=== PATIENT | female | born 1950 | race Caucasian/White ===

== ENCOUNTER 2020-02-19 14:53 | Inpatient (IN) | payer MEDICARE, OTHER ==
[2020-02-19 16:09] LABS: FLU B NEGATIVE B (NEGATIVE B)
[2020-02-19 16:31] LABS: BASOPHIL 0.7 % (0-2); EOSINOPHIL 1.4 % (0-7); HGB 14.3 g/dl (12.5-16.0); LYMPHOCYTE 10.5 % (15-48); MCH 28.4 pg (25.0-31.0); MCHC 31.1 g/dL (32.0-36.0); MCV 91.3 fL (78.0-100.0); MPV 10.4 fL (6.0-9.5); NEUTROPHIL 80.9 % (41-80); NRBC 0; PLT 329 K/uL (150-400); RBC 5.04 M/uL (4.20-5.40); RDW 15.7 % (11.5-14.0); WBC 14.5 K/uL (4.0-10.5)
[2020-02-19 16:49] LABS: ALBUMIN 2.8 g/dL (3.4-5.0); BILIRUBIN - TOTAL 0.8 mg/dL (0.2-1.0); BUN/CREAT RATIO (CALC) 17.4 RATIO; CREATININE 1.15 mg/dL (0.51-0.95); POTASSIUM 3.6 mmol/L (3.5-5.1); TOTAL PROTEIN 8.8 g/dL (6.4-8.2)
[2020-02-19 16:55] LABS: LACTIC ACID 1.1 mmol/L (0.4-1.9)
[2020-02-19 17:59] LABS: BILIRUBIN NEGATIVE (NEGATIVE); BLOOD 3+ Ery/uL (NEGATIVE); COLOR YELLOW (YELLOW); GLUCOSE (U) NORMAL (NORMAL); LEUKOCYTES 2+ Leu/uL (NEGATIVE); NITRITE POSITIVE (NEGATIVE); PROTEIN 2+ mg/dL (NEGATIVE); SPECIFIC GRAVITY 1.015 (1.001-1.030); UROBILINOGEN 0.2 mg/dL (0.2-1.0)
[2020-02-19 18:03] LABS: CLARITY SLIGHTLY HAZY (CLEAR)
[2020-02-19 18:07] LABS: BACTERIA 2+; URINARY WBC 20-50
[2020-02-19] MEDS ORDERED: TOPROL XL100 MG PO (20:57)
[2020-02-19] MEDS ORDERED: DITROPAN XL *OUT5 MG PO (21:01)
[2020-02-19] MEDS ORDERED: CARDURA2 MG PO (21:03)
[2020-02-19] MEDS ORDERED: CRESTOR20 MG PO (21:04)
[2020-02-19] MEDS ORDERED: K-DUR20 MEQ PO (21:05)
[2020-02-19] MEDS ORDERED: CYMBALTA20 MG PO (21:07)
[2020-02-19] MEDS ORDERED: NORVASC2.5 MG PO (21:08)
[2020-02-20 04:49] LABS: BASOPHIL 0.6 % (0-2); EOSINOPHIL 0.5 % (0-7); HCT 44.5 % (37.0-47.0); LYMPHOCYTE 7.1 % (15-48); MCH 28.9 pg (25.0-31.0); MCHC 31.5 g/dL (32.0-36.0); MCV 91.8 fL (78.0-100.0); MONOCYTE 5.7 % (0-12); MPV 10.3 fL (6.0-9.5); NEUTROPHIL 83.9 % (41-80); NRBC 0; PLT 320 K/uL (150-400); RBC 4.85 M/uL (4.20-5.40); RDW 15.9 % (11.5-14.0); WBC 18.3 K/uL (4.0-10.5)
[2020-02-20 05:10] LABS: BUN/CREAT RATIO (CALC) 19.1 RATIO; CREATININE 0.89 mg/dL (0.51-0.95); POTASSIUM 3.8 mmol/L (3.5-5.1)
[2020-02-21 05:52] LABS: BASOPHIL 0.8 % (0-2); EOSINOPHIL 0.2 % (0-7); HCT 47.7 % (37.0-47.0); HGB 14.5 g/dl (12.5-16.0); LYMPHOCYTE 7.6 % (15-48); MCH 28.4 pg (25.0-31.0); MCHC 30.4 g/dL (32.0-36.0); MCV 93.5 fL (78.0-100.0); MONOCYTE 8.7 % (0-12); MPV 10.1 fL (6.0-9.5); NEUTROPHIL 80.4 % (41-80); PLT 307 K/uL (150-400)
[2020-02-21 06:10] LABS: BUN/CREAT RATIO (CALC) 18.6 RATIO; CREATININE 0.86 mg/dL (0.51-0.95); POTASSIUM 3.1 mmol/L (3.5-5.1)
[2020-02-21 07:10] LABS: BAND 6 % (0-10); LYMPHOCYTE(M) 2 % (15-48); MONOCYTE(M) 7 % (0-12); NEUTROPHILS(M) 85 % (41-80); TOTAL CELL COUNT 100
[2020-02-21 07:11] LABS: PLATELET ESTIMATE NORMAL; PLATELET MORPHOLOGY NORMAL
--- NOTE | 2020-02-21 13:53 | NUR ---
WAS MADE AWARE THAT PATIENT'S TEMP WAS 103.0, TALKED WITH DOCTOR. GAVE PATIENT 650 TYLENOL SUPP. RECHECKED TEMP AT 1100 AND PATIENT TEMP HAD INCREASED. MD ORDERED COOLING BLANKET. PLACE ICE PACKS UNDER ARMS AND GROIN AREA AND PLACED COOLING BLANET ON PATIENT AT 1126. RECHECK TEMP AT 1245 WAS GOING DOWN TO 101.4. RECHECKED AGAIN AT 1345 AND WAS 97.6. COOLING BLANKET WAS REMOVED AND PATIENT'S SKIN WAS CHECK WAS PINK/INTACT AND COOL TO TOUCH.
[2020-02-22 05:51] LABS: BASOPHIL 0.7 % (0-2); EOSINOPHIL 0.9 % (0-7); HCT 39.5 % (37.0-47.0); HGB 12.5 g/dl (12.5-16.0); LYMPHOCYTE 6.9 % (15-48); MCH 28.7 pg (25.0-31.0); MCHC 31.6 g/dL (32.0-36.0); MCV 90.8 fL (78.0-100.0); MONOCYTE 5.3 % (0-12); MPV 10.4 fL (6.0-9.5); NEUTROPHIL 82.4 % (41-80); NRBC 0; PLT 268 K/uL (150-400); RBC 4.35 M/uL (4.20-5.40); RDW 15.7 % (11.5-14.0); WBC 15.9 K/uL (4.0-10.5)
[2020-02-22 06:07] LABS: BUN/CREAT RATIO (CALC) 18.8 RATIO; CREATININE 0.8 mg/dL (0.51-0.95); POTASSIUM 2.6 mmol/L (3.5-5.1)
--- NOTE | 2020-02-22 08:30 | NUR ---
PATIENT'S HEART RATE ON MONITOR IS STATING 117-135, CHECK PATIENT, SHE IS LAYING IN BED BP 126/64 TEMP 99.5. WENT AND TALKED WITH MD ABOUT PATIENT. HE STATED TO BOLUS THE NS THAT SHE HAD RUNNING AT 500/500 THEN START THE NS WITH K+ THAT HE ORDERED AFTER, HE FELT THAT PATIENT WAS BECOMING SEPTIC. AND FOR ME TO WATCH PATIENT, IF SHE GOT INTO THE 150'S LET HIM KNOW.
--- NOTE | 2020-02-22 09:13 | NUR ---
PATIENT BOLUS ENED, STARTED NS 20K AND PATIENT'S HEART RATE IS 124
[2020-02-23 05:50] LABS: HGB 12.4 g/dl (12.5-16.0); MCH 28.6 pg (25.0-31.0); MCHC 31.8 g/dL (32.0-36.0); MCV 89.9 fL (78.0-100.0); MPV 10.1 fL (6.0-9.5); RBC 4.34 M/uL (4.20-5.40); RDW 15.9 % (11.5-14.0)
[2020-02-23 05:52] LABS: WBC 17.4 K/uL (4.0-10.5)
[2020-02-23 06:10] LABS: BUN/CREAT RATIO (CALC) 17.1 RATIO; CREATININE 0.76 mg/dL (0.51-0.95); POTASSIUM 3.7 mmol/L (3.5-5.1)
--- NOTE | 2020-02-23 17:07 | NUR ---
02/23/2020 Patient is current with [facility].
[2020-02-24 07:16] LABS: BASOPHIL 0.5 % (0-2); EOSINOPHIL 1.7 % (0-7); HCT 37.8 % (37.0-47.0); HGB 12.1 g/dl (12.5-16.0); LYMPHOCYTE 6.6 % (15-48); MCH 28.9 pg (25.0-31.0); MCV 90.4 fL (78.0-100.0); MONOCYTE 6.1 % (0-12); MPV 10.4 fL (6.0-9.5); NEUTROPHIL 81.3 % (41-80); NRBC 0; PLT 274 K/uL (150-400); RBC 4.18 M/uL (4.20-5.40); WBC 16.9 K/uL (4.0-10.5)
[2020-02-24] MEDS ORDERED: CALTRATE 600 +1 EAC1 PO (12:14)
[2020-02-24] MEDS ORDERED: LEVOTHYROXINE88 MC1 PO (12:18)
[2020-02-24] MEDS ORDERED: BACLOFEN 20MG T20 MG PO (12:20)
[2020-02-24] MEDS ORDERED: PRAVACHOL20 M1 PO (12:20)
[2020-02-24] MEDS ORDERED: TOPROL XL 25MG25 MG PO (12:21)
[2020-02-24] MEDS ORDERED: MIRAPEX0.25 MG PO (12:21)
[2020-02-25 06:23] LABS: BASOPHIL 0.5 % (0-2); EOSINOPHIL 3.6 % (0-7); HCT 37.3 % (37.0-47.0); HGB 11.7 g/dl (12.5-16.0); LYMPHOCYTE 6.5 % (15-48); MCH 28.7 pg (25.0-31.0); MCHC 31.4 g/dL (32.0-36.0); MCV 91.6 fL (78.0-100.0); MONOCYTE 5.5 % (0-12); MPV 10.6 fL (6.0-9.5); NEUTROPHIL 81.6 % (41-80); NRBC 0; PLT 266 K/uL (150-400); RBC 4.07 M/uL (4.20-5.40); RDW 15.9 % (11.5-14.0); WBC 14.8 K/uL (4.0-10.5)
[2020-02-25 06:43] LABS: BUN/CREAT RATIO (CALC) 13.5 RATIO; CREATININE 0.74 mg/dL (0.51-0.95)
[2020-02-26 05:57] LABS: BASOPHIL 0.4 % (0-2); EOSINOPHIL 3.2 % (0-7); HCT 38.3 % (37.0-47.0); HGB 11.9 g/dl (12.5-16.0); LYMPHOCYTE 6.6 % (15-48); MCH 28.5 pg (25.0-31.0); MCHC 31.1 g/dL (32.0-36.0); MCV 91.8 fL (78.0-100.0); MONOCYTE 6.1 % (0-12); MPV 10.2 fL (6.0-9.5); NEUTROPHIL 82.4 % (41-80); NRBC 0; PLT 295 K/uL (150-400); RBC 4.17 M/uL (4.20-5.40)
[2020-02-26 06:23] LABS: BUN/CREAT RATIO (CALC) 12.3 RATIO; CREATININE 0.73 mg/dL (0.51-0.95); POTASSIUM 3.7 mmol/L (3.5-5.1)
--- NOTE | 2020-02-26 13:29 | NUR ---
HAS NOT DETERMINED WHICH IV ABX ARE NEEDED FOR DISCHARGE AT THIS TIME. WANTING TO SPEAK TO PT UROLOGIST; DR. MARTINEZ WITH [facility] [phone] I DID CALL AND REQUEST A CALL BY HIM TO DR. ROYAL. SPOKE TO DJ AT UROLOGY OFFICE HE WILL REQUEST A CONSULT OVER THE PHONE. IN SPEAKING TO DR. ROYAL PT NOT MEDICALLY STABLE AT THIS TIME. SHE IS NEEDING A PICC LINE, AND PENDING TO SEE WHAT UROLOGY SAYS( POSSIABLE TRANSFER). WBC STILL CONCERNING TO DR. ROYAL. NO D/C DATE AT THIS TIME
--- NOTE | 2020-02-26 15:48 | NUR ---
02/26/20 1500 ORDER RECEIVED FOR MIDLINE INSERTION. PROCEDURE EXPLANIED TO PATIENT. PT PREPPED AND DRAPED IN STERILE FASHION. THE PT'S RIGHT UPPER ARM CEPHALIC VEIN WAS VISUALIZED USING THE SITE RITE 6 ULTRA SOUND. A 21 GA NEEDLE WAS USED. GOOD BLOOD RETURN WAS NOTED. THE GUIDE WIRE THREADED EASILY. THE NEEDLE WAS REMOVED AND THE MIDLINE CATHETER WAS PLACED OVER THE WIRE. THE WIRE AND SHEATH WERE REMOVED. GOOD BLOOD RETURN WAS NOTED. A CONNECTOR WAS FLUSHED AND PLACED OVER THE END OF THE CATHETER. A STAT LOCK WAS PLACED ON THE CATHETER AND A STERILE BIOPATCH WAS ALSO PLACED ON THE INSERTION SITE. A STERILE TEGADERM WAS PLACED OVER THE MIDLINE CATHETER. PT TOLERATED WELL. PT HAS A 20GA 10 CM POWERGLIDE MIDLINE CATHETER. GOOD FOR 29 DAYS. THIS IS NOT A CENTRAL LINE. REPORT TO Jaymie HERRMANN RN
[2020-02-27 04:34] LABS: BASOPHIL 0.3 % (0-2); HCT 37.3 % (37.0-47.0); HGB 11.5 g/dl (12.5-16.0); LYMPHOCYTE 7.8 % (15-48); MCH 28.5 pg (25.0-31.0); MCHC 30.8 g/dL (32.0-36.0); MCV 92.6 fL (78.0-100.0); MONOCYTE 6.7 % (0-12); MPV 10.4 fL (6.0-9.5); NEUTROPHIL 81.2 % (41-80); NRBC 0; PLT 368 K/uL (150-400); RBC 4.03 M/uL (4.20-5.40); RDW 16.1 % (11.5-14.0); WBC 15.2 K/uL (4.0-10.5)
[2020-02-27 04:35] LABS: BUN/CREAT RATIO (CALC) 13.3 RATIO; CREATININE 0.75 mg/dL (0.51-0.95); POTASSIUM 3.3 mmol/L (3.5-5.1)
[2020-02-27 05:09] LABS: TOTAL CELL COUNT 100
[2020-02-27 05:10] LABS: NEUTROPHILS(M) 78 % (41-80)
[2020-02-27 05:11] LABS: BAND 2 % (0-10); EOSINOPHIL(M) 2 % (0-7); LYMPHOCYTE(M) 10 % (15-48); MONOCYTE(M) 8 % (0-12); PLATELET ESTIMATE NORMAL; PLATELET MORPHOLOGY NORMAL
[2020-02-27 13:00] LABS: BILIRUBIN NEGATIVE (NEGATIVE); BLOOD 3+ Ery/uL (NEGATIVE); CLARITY CLEAR (CLEAR); COLOR YELLOW (YELLOW); GLUCOSE (U) NORMAL (NORMAL); LEUKOCYTES 3+ Leu/uL (NEGATIVE); NITRITE POSITIVE (NEGATIVE); PROTEIN TRACE (LOW) mg/dL (NEGATIVE); UROBILINOGEN 0.2 mg/dL (0.2-1.0)
[2020-02-27 13:10] LABS: BACTERIA 3+; SQUAMOUS EPITHELIAL CELLS RARE; URINARY RBC 20-50; YEAST PRESENT
[2020-02-28 09:29] LABS: BASOPHIL 0.2 % (0-2); EOSINOPHIL 2.4 % (0-7); HCT 38.2 % (37.0-47.0); HGB 11.9 g/dl (12.5-16.0); LYMPHOCYTE 7.3 % (15-48); MCH 28.5 pg (25.0-31.0); MCHC 31.2 g/dL (32.0-36.0); MCV 91.4 fL (78.0-100.0); MONOCYTE 6.6 % (0-12); NEUTROPHIL 82.7 % (41-80); NRBC 0; PLT 375 K/uL (150-400); RBC 4.18 M/uL (4.20-5.40); RDW 16.1 % (11.5-14.0); WBC 13.9 K/uL (4.0-10.5)
[2020-02-28 09:41] LABS: BUN/CREAT RATIO (CALC) 12.5 RATIO; CREATININE 0.64 mg/dL (0.51-0.95); POTASSIUM 3.2 mmol/L (3.5-5.1)
[2020-02-28 09:47] LABS: TOTAL CELL COUNT 100
[2020-02-28 09:50] LABS: EOSINOPHIL(M) 1 % (0-7); LYMPHOCYTE(M) 9 % (15-48); MONOCYTE(M) 8 % (0-12); NEUTROPHILS(M) 82 % (41-80); PLATELET ESTIMATE NORMAL; PLATELET MORPHOLOGY NORMAL
[2020-02-29 01:33] LABS: BASOPHIL 0.3 % (0-2); EOSINOPHIL 2.2 % (0-7); HCT 40.3 % (37.0-47.0); HGB 12.7 g/dl (12.5-16.0); LYMPHOCYTE 10.5 % (15-48); MCH 28.5 pg (25.0-31.0); MCHC 31.5 g/dL (32.0-36.0); MCV 90.4 fL (78.0-100.0); MONOCYTE 7.8 % (0-12); MPV 10.1 fL (6.0-9.5); NEUTROPHIL 78.3 % (41-80); NRBC 0; PLT 460 K/uL (150-400); RBC 4.46 M/uL (4.20-5.40); RDW 16.4 % (11.5-14.0); WBC 15.6 K/uL (4.0-10.5)
[2020-02-29 01:46] LABS: BUN/CREAT RATIO (CALC) 11.5 RATIO; CREATININE 0.78 mg/dL (0.51-0.95)
[2020-03-01 05:47] LABS: BASOPHIL 0.3 % (0-2); EOSINOPHIL 3.3 % (0-7); HCT 40.8 % (37.0-47.0); HGB 12.7 g/dl (12.5-16.0); LYMPHOCYTE 10.7 % (15-48); MCH 28.1 pg (25.0-31.0); MCHC 31.1 g/dL (32.0-36.0); MCV 90.3 fL (78.0-100.0); MONOCYTE 8.5 % (0-12); MPV 10.1 fL (6.0-9.5); NEUTROPHIL 76.1 % (41-80); PLT 466 K/uL (150-400); RBC 4.52 M/uL (4.20-5.40); RDW 16.8 % (11.5-14.0); WBC 15.9 K/uL (4.0-10.5)
[2020-03-01 06:03] LABS: BUN/CREAT RATIO (CALC) 13.3 RATIO; CREATININE 0.83 mg/dL (0.51-0.95); POTASSIUM 3.9 mmol/L (3.5-5.1)
[2020-03-01 06:37] LABS: EOSINOPHIL(M) 4 % (0-7); LYMPHOCYTE(M) 13 % (15-48); MONOCYTE(M) 10 % (0-12); NEUTROPHILS(M) 72 % (41-80); NRBC 0; PLATELET ESTIMATE INCREASED; PLATELET MORPHOLOGY NORMAL; TOTAL CELL COUNT 100; VARIANT LYMPHOCYTE 1
== END 2020-03-01 20:50 | disposition other institution (70) | DRG 698 ==
LOC: FER 14:53 → FMS 19:38
PROVIDERS: Emergency Medicine; Internal Medicine; Nurse Practitioner Adult Health; ADMIT Hospitalist
PROC: 05HY33Z Insertion of Infusion Device into Upper Vein, Percutaneous Approach (ICD-10-PCS; principal; 2020-02-26)
DX: T83.518A Infection and inflammatory reaction due to other urinary catheter, initial encounter (principal); A41.9 Sepsis, unspecified organism; J18.9 Pneumonia, unspecified organism; G93.41 Metabolic encephalopathy; N13.0 Hydronephrosis with ureteropelvic junction obstruction; J44.0 Chronic obstructive pulmonary disease with (acute) lower respiratory infection; Y84.6 Urinary catheterization as the cause of abnormal reaction of the patient, or of later complication, without mention of misadventure at the time of the procedure; L89.102 Pressure ulcer of unspecified part of back, stage 2; G35 Multiple sclerosis; N31.2 Flaccid neuropathic bladder, not elsewhere classified; I10 Essential (primary) hypertension; J44.9 Chronic obstructive pulmonary disease, unspecified; Z89.611 Acquired absence of right leg above knee; Z86.73 Personal history of transient ischemic attack (TIA), and cerebral infarction without residual deficits; L89.152 Pressure ulcer of sacral region, stage 2; B96.5 Pseudomonas (aeruginosa) (mallei) (pseudomallei) as the cause of diseases classified elsewhere
CPT/HCPCS: 36415; 70450; 71250; 80048; 80053; 80200; 80202; 81001; 83605; 83735; 83880; 84145; 84484; 85025; 87040; 87076; 87088; 87186; 87804; 87899; 93005; 94010; 97161; 97166; 97535; C1751; J0692; J0713; J1642; J1650; J2020; J2543; J3260; J3370; J3480; J7030; J7040; U0002